=== PATIENT | male | born 1980 ===

== ENCOUNTER 2019-09-29 06:30 | Emergency (ER) | payer OTHER ==
--- NOTE | 2019-09-29 06:52 | ED ---
General Adult HPI - General Stated complaint: Independent Lab Request For Arrest Time Seen by Provider: 09/29/19 06:44 Source: patient, police, RN notes reviewed Mode of arrival: ambulatory Limitations: no limitations - History of Present Illness Initial comments: 39-year-old male presents emergency Department with [facility] for independent living alcohol withdrawal. Reportedly patient was arrested for possible DUI has had his want blood drawn done. Patient will chair that he wanted his independent blood drawn. I did evaluate the patient and patient states that he did not request this. Patient has no complaints. - Related Data Home Medications Medication Instructions Recorded Confirmed No Known Home Medications 09/29/19 09/29/19 Allergies Allergy/AdvReac Type Severity Reaction Status Date / Time No Known Allergies Allergy Verified 09/29/19 06:48 Review of Systems ROS Statement: Those systems with pertinent positive or pertinent negative responses have been documented in the HPI. ROS Other: All systems not noted in ROS Statement are negative. General Exam General appearance: alert, in no apparent distress Head exam: Present: atraumatic, normocephalic, normal inspection Respiratory exam: Present: normal lung sounds bilaterally. Absent: respiratory distress, wheezes, rales, rhonchi, stridor Cardiovascular Exam: Present: regular rate, normal rhythm, normal heart sounds. Absent: systolic murmur, diastolic murmur, rubs, gallop, clicks Neurological exam: Present: alert, oriented X3 Skin exam: Present: warm, dry, intact, normal color. Absent: rash Medical Decision Making - Medical Decision Making Patient refuses blood alcohol draw. Patient was discharged to police custody Disposition Clinical Impression: Routine lab draw Disposition: HOME SELF-CARE Condition: Stable Additional Instructions: Please return to the Emergency Department if symptoms worsen or any other concerns. Is patient prescribed a controlled substance at d/c from ED?: No Referrals: Nonstaff,Physician [Primary Care Provider] - 1-2 days Time of Disposition: 06:51
[2019-09-29 06:53] VITALS: BP 125/81; PULSE 135; RESP 18; TEMP 98.5
== END 2019-09-29 06:58 | disposition home or self-care (01) ==
LOC: EC 06:30
DX: Z00.00 Encounter for general adult medical examination without abnormal findings (principal); Z53.29 Procedure and treatment not carried out because of patient's decision for other reasons
CPT/HCPCS: 99283